=== PATIENT | female | born 1965 | race Caucasian/White ===

== ENCOUNTER → 2017-12-26 | Outpatient (CLI) | payer OTHER ==
[~2017-12-26] MED LIST: ADVIL200 MG PO; ALBUTEROL0.09 MG/A2 INH; ALBUTEROL2.5 MG/0.5 INH; ALLEGRA60 M1 PO; FLONASE0.05 MG/AC NS; PREDNICOT20 MG PO
== END | disposition home or self-care (01) ==
LOC: LAB 18:44
DX: R07.0 Pain in throat (principal)